=== PATIENT | female | born 1980 | race Caucasian/White ===

== ENCOUNTER 2018-04-04 01:15 | Emergency (ER) | payer OTHER ==
--- NOTE | 2018-04-04 01:55 | ER ---
Nurse's Notes [facility] Name: Coco Moore Age: 38 yrs Sex: Female : 1980 Arrival Date: 04/04/2018 Time: 01:19 Bed 7 Private MD: Diagnosis: Acute pharyngitis;Allergy status to unspecified drugs, medicaments and biological substances status Presentation: 04/04 01:27 Presenting complaint: Patient states: Took first dose of Gabapentin 300 mg capsule at lp1 0000; States waking up and gasping for air, "I feel like I have to think to remember to take a breath"; Patient states "I don't ever take medication". Transition of care: patient was not received from another setting of care. Onset: The symptoms/episode began/occurred suddenly. Anaphylaxis evaluation, an aura of "impending doom". Onset of symptoms was April 04, 2018 at 01:00. Risk Assessment: Do you want to hurt yourself or someone else? Patient reports no desire to harm self or others. Initial Sepsis Screen: Does the patient meet any 2 criteria? No. Patient's initial sepsis screen is negative. Does the patient have a suspected source of infection? No. Patient's initial sepsis screen is negative. Care prior to arrival: None. 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 - Social history:: Smoking status: Patient/guardian denies using tobacco. - Ebola Screening: : No symptoms or risks identified at this time. - Family history:: not pertinent. Screenin:54 Abuse screen: Denies threats or abuse. Denies injuries from another. Nutritional lp1 screening: No deficits noted. Tuberculosis screening: No symptoms or risk factors identified. Fall Risk None identified. Assessment: 01:30 General: Appears in no apparent distress. Behavior is anxious. Pain: Denies pain. lp1 Neuro: Level of Consciousness is awake, alert, obeys commands, Oriented to person, place, time, situation. Cardiovascular: Patient's skin is warm and dry. Respiratory: Airway is patent Trachea midline Respiratory effort is even, Respiratory pattern is regular, Breath sounds are clear bilaterally. GI: No signs and/or symptoms were reported involving the gastrointestinal system. : No signs and/or symptoms were reported regarding the genitourinary system. EENT: Throat is clear. Derm: Skin is pink, warm \\T\\ dry. Musculoskeletal: No deficits noted. 02:27 Reassessment: Patient appears in no apparent distress at this time. Patient and/or ed1 family updated on plan of care and expected duration. Pain level reassessed. Patient is alert, oriented x 3, equal unlabored respirations, skin warm/dry/pink. Patient denies pain at this time. Patient states feeling better. Patient states symptoms have improved. Respiratory: Airway is patent Respiratory effort is even, unlabored, Respiratory pattern is regular, symmetrical, Breath sounds are clear bilaterally. Vital Signs: 01:29 BP 127 / 98; Pulse 78; Resp 16; Temp 97.6(O); Pulse Ox 100% on R/A; Weight 74.84 kg; lp1 Height 5 ft. 9 in. (175.26 cm); Pain 0/10; 02:27 BP 117 / 71; Pulse 72; Resp 16; Pulse Ox 100% on R/A; Pain 0/10; ed1 01:29 Body Mass Index 24.37 (74.84 kg, 175.26 cm) lp1 ED Course: 01:19 Patient arrived in ED. es 01:24 Salvador Brian MD is Attending Physician. aiden 01:26 Rosalva Bertrand, RUBINA is Primary Nurse. lp1 01:29 Triage completed. lp1 01:30 Arm band placed on left wrist. lp1 01:30 Patient has correct armband on for positive identification. Placed in gown. Pulse ox lp1 on. NIBP on. 02:27 No provider procedures requiring assistance completed. Patient did not have IV access ed1 during this emergency room visit. Administered Medications: :59 Drug: predniSONE 60 mg Route: PO; ed1 02:27 Follow up: Response: No adverse reaction ed1 01:59 Drug: Benadryl 50 mg Route: PO; ed1 02:26 Follow up: Response: No adverse reaction; Marked relief of symptoms ed1 01:59 Drug: Zithromax 500 mg Route: PO; ed1 02:26 Follow up: Response: No adverse reaction ed1 Outcome: 01:53 Discharge ordered by MD. wolfe 02:27 Discharged to home ambulatory, with significant other. ed1 02:27 Condition: good 02:27 Discharge instructions given to patient, Instructed on discharge instructions, follow up and referral plans. medication usage, Demonstrated understanding of instructions, follow-up care, medications, Prescriptions given X 4. 02:29 Patient left the ED. ed1 Signatures: Salvador Brian MD MD cha Salyer, Edna es Riggs, Erika, COMPUTING SYSTEMS MECHANIC COMPUTING SYSTEMS MECHANIC ed1 Rosalva Bertrand, RN RN lp1
--- NOTE | 2018-04-04 01:55 | EDPHYS ---
Physician Documentation [facility] Name: Coco Moore Age: 38 yrs Sex: Female : 1980 Arrival Date: 04/04/2018 Time: 01:19 Bed 7 Private MD: ED Physician Salvador Brian HPI: 04/04 01:46 This 38 yrs old Female presents to ER via Ambulatory with complaints of aiden Allergy Symptoms. 01:46 The patient presents with nasal drainage, that is watery. Onset: The symptoms/episode aiden began/occurred just prior to arrival. Modifying factors: The symptoms are alleviated by nothing. the symptoms are aggravated by nothing. 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 - Social history:: Smoking status: Patient/guardian denies using tobacco. - Ebola Screening: : No symptoms or risks identified at this time. - Family history:: not pertinent. ROS: 01:47 Constitutional: Negative for fever, chills, and weight loss, Eyes: Negative for injury, aiden pain, redness, and discharge, Neck: Negative for injury, pain, and swelling, Cardiovascular: Negative for chest pain, palpitations, and edema, Respiratory: Negative for shortness of breath, cough, wheezing, and pleuritic chest pain, Abdomen/GI: Negative for abdominal pain, nausea, vomiting, diarrhea, and constipation, Back: Negative for injury and pain, : Negative for injury, bleeding, discharge, and swelling, MS/Extremity: Negative for injury and deformity, Skin: Negative for injury, rash, and discoloration, Neuro: Negative for headache, weakness, numbness, tingling, and seizure, Psych: Negative for depression, anxiety, suicide ideation, homicidal ideation, and hallucinations, Allergy/Immunology: Negative for hives, rash, and allergies, Endocrine: Negative for neck swelling, polydipsia, polyuria, polyphagia, and marked weight changes, Hematologic/Lymphatic: Negative for swollen nodes, abnormal bleeding, and unusual bruising. 01:47 ENT: Positive for difficulty swallowing. 01:47 Respiratory: Positive for cough, shortness of breath, at rest. Exam: 01:47 Constitutional: This is a well developed, well nourished patient who is awake, alert, aiden and in no acute distress. Head/Face: Normocephalic, atraumatic. Eyes: Pupils equal round and reactive to light, extra-ocular motions intact. Lids and lashes normal. Conjunctiva and sclera are non-icteric and not injected. Cornea within normal limits. Periorbital areas with no swelling, redness, or edema. Neck: Trachea midline, no thyromegaly or masses palpated, and no cervical lymphadenopathy. Supple, full range of motion without nuchal rigidity, or vertebral point tenderness. No Meningismus. Chest/axilla: Normal chest wall appearance and motion. Nontender with no deformity. No lesions are appreciated. Cardiovascular: Regular rate and rhythm with a normal S1 and S2. No gallops, murmurs, or rubs. Normal PMI, no JVD. No pulse deficits. Respiratory: Lungs have equal breath sounds bilaterally, clear to auscultation and percussion. No rales, rhonchi or wheezes noted. No increased work of breathing, no retractions or nasal flaring. Abdomen/GI: Soft, non-tender, with normal bowel sounds. No distension or tympany. No guarding or rebound. No evidence of tenderness throughout. Back: No spinal tenderness. No costovertebral tenderness. Full range of motion. Skin: Warm, dry with normal turgor. Normal color with no rashes, no lesions, and no evidence of cellulitis. MS/ Extremity: Pulses equal, no cyanosis. Neurovascular intact. Full, normal range of motion. Neuro: Awake and alert, GCS 15, oriented to person, place, time, and situation. Cranial nerves II-XII grossly intact. Motor strength 5/5 in all extremities. Sensory grossly intact. Cerebellar exam normal. Normal gait. Psych: Awake, alert, with orientation to person, place and time. Behavior, mood, and affect are within normal limits. 01:47 ENT: TM's: are normal, no acute changes, Nose: is normal, no acute changes, Mouth: is normal, no acute changes, Lips: normal, moist, Oral mucosa: normal, moist, Gums: normal with healthy appearance, Tongue: is normal, abscess, is not appreciated, drooling, is not appreciated, Posterior pharynx: Tonsils: with erythema, Uvula: normal, midline, non-edematous, no erythema, swelling, is not appreciated, erythema, that is mild, exudate, is not appreciated, peritonsillar mass, is not appreciated, pooling of secretions, is not appreciated. Vital Signs: 01:29 BP 127 / 98; Pulse 78; Resp 16; Temp 97.6(O); Pulse Ox 100% on R/A; Weight 74.84 kg; lp1 Height 5 ft. 9 in. (175.26 cm); Pain 0/10; 02:27 BP 117 / 71; Pulse 72; Resp 16; Pulse Ox 100% on R/A; Pain 0/10; ed1 01:29 Body Mass Index 24.37 (74.84 kg, 175.26 cm) lp1 MDM: 01:24 Patient medically screened. [facility] 01:49 Data reviewed: vital signs, nurses notes. [facility] Administered Medications: 01:59 Drug: predniSONE 60 mg Route: PO; ed1 02:27 Follow up: Response: No adverse reaction ed1 01:59 Drug: Benadryl 50 mg Route: PO; ed1 02:26 Follow up: Response: No adverse reaction; Marked relief of symptoms ed1 01:59 Drug: Zithromax 500 mg Route: PO; ed1 02:26 Follow up: Response: No adverse reaction ed1 Disposition: 04/04/18 01:53 Discharged to Home. Impression: Acute pharyngitis, Allergy status to unspecified drugs, medicaments and biological substances status. - Condition is Stable. - Discharge Instructions: Allergies, Adult, Pharyngitis, Pharyngitis, [id number], Sore Throat, [id number]. - Prescriptions for Benadryl 25 mg Oral Capsule - take 1 capsule by ORAL route every 6 hours As needed; 30 tablet. Pepcid 20 mg Oral Tablet - take 1 tablet by ORAL route every 12 hours for 10 days; 20 tablet. Zithromax Z- Ede 250 mg Oral Tablet - take 1 tablet by ORAL route as directed for 5 days Day 1 - take two (2) tablets one time. Day 2, 3, 4 , 5 take one (1) tablet once daily.; 6 tablet. Medrol (Ede) 4 mg Oral Tablets, Dose Pack - take 1 tablet by ORAL route as directed - follow package instructions; 1 packet. - Medication Reconciliation Form, Thank You Letter, Antibiotic Education, Prescription Opioid Use form. - Follow up: Private Physician; When: 2 - 3 days; Reason: Recheck today's complaints, Continuance of care, Re-evaluation by your physician. - Problem is new. - Symptoms have improved. Signatures: Salvador Brian MD MD cha Riggs, Erika, FIRESTOP/CONTAINMENT WORKER FIRESTOP/CONTAINMENT WORKER ed1 Rosalva Bertrand RN RN lp1 Corrections: (The following items were deleted from the chart) 02:29 01:53 04/04/2018 01:53 Discharged to Home. Impression: Acute pharyngitis; Allergy ed1 status to unspecified drugs, medicaments and biological substances status. Condition is Stable. Forms are Medication Reconciliation Form, Thank You Letter, Antibiotic Education, Prescription Opioid Use. Follow up: Private Physician; When: 2 - 3 days; Reason: Recheck today's complaints, Continuance of care, Re-evaluation by your physician. Problem is new. Symptoms have improved. aiden
[2018-04-04] MEDS ORDERED: AZITHROMYCIN 250 MG TAB ONE (02:01)
[2018-04-04] MEDS ORDERED: DIPHENHYDRAMINE 25 MG TAB/CAP ONE (02:02)
[2018-04-04] MEDS ORDERED: predniSONE 20 MG TAB ONE (02:02)
== END 2018-04-04 02:29 | disposition home or self-care (01) ==
LOC: ER 01:15
DX: J02.9 Acute pharyngitis, unspecified (principal); Z88.9 Allergy status to unspecified drugs, medicaments and biological substances
CPT/HCPCS: 99283; J7512

== ENCOUNTER 2019-01-23 22:38 | Emergency (ER) | payer OTHER ==
[2019-01-24 00:13] LABS: Urine Blood NEGATIVE (NEG); Urine Glucose NEGATIVE (NEG); Urine Protein NEGATIVE (NEG); Urine Specific Gravity 1.025 (1.005-1.030); Urine pH 5.5 (5.0-7.0)
[2019-01-24 00:49] LABS: Absolute Lymphocytes (CBC) 3.8 K/uL (0.7-4.9); Basophils % 0.7 % (0-1.3); Hematocrit 42.3 % (36.0-45.0); Lymphocytes % 48.9 % (15.3-44.8); MPV 10.3 fL (7.6-11.3); RBC Red Blood Cell Count 4.73 M/uL (3.86-4.86)
[2019-01-24] MEDS ORDERED: METOCLOPRAMIDE 10 MG/2mL INJ ONE (00:58)
[2019-01-24] MEDS ORDERED: DIPHENHYDRAMINE 50 MG/ML VIAL ONE (00:59)
[2019-01-24] MEDS ORDERED: NA CHLORIDE 0.9% 2,000 ML ONE (00:59)
[2019-01-24] MEDS ORDERED: KETOROLAC 30 MG/ML INJ ONE (00:59)
--- NOTE | 2019-01-24 01:10 | ER ---
Nurse's Notes [facility] Name: Coco Moore Age: 38 yrs Sex: Female : 1980 Arrival Date: 01/23/2019 Time: 22:40 Bed 18 Private MD: Diagnosis: Headache Presentation: 01/23 22:50 Presenting complaint: Patient states: forehead and sinus headache for 3 days. pt took 2 ak1 migraine Excedrin 1800. Transition of care: patient was not received from another setting of care. Onset of symptoms is unknown. Risk Assessment: Do you want to hurt yourself or someone else? Patient reports no desire to harm self or others. Initial Sepsis Screen: Does the patient meet any 2 criteria? No. Patient's initial sepsis screen is negative. Does the patient have a suspected source of infection? No. Patient's initial sepsis screen is negative. Care prior to arrival: None. 22:50 Method Of Arrival: Ambulatory ak1 22:50 Acuity: HALEY 3 ak1 Triage Assessment: 22:52 Headache History: Denies prior headaches. General: Appears in no apparent distress. ak1 23:40 General: Behavior is calm, cooperative, appropriate for age. Pain: Complains of pain in cc3 right frontal area and left temporal area and left frontal area and forehead and top of head and right side of forehead Pain currently is 10 out of 10 on a pain scale. Pain began 2-3 days ago. Also complains of no other associated symptoms. [facility] BAILIFF: 22:52 LMP N/A - Hysterectomy ak1 Historical: - Allergies: 22:52 No Known Allergies; ak1 - Home Meds: 22:52 None [Active]; ak1 - PMHx: 22:52 Back pain; ak1 - PSHx: 22:52 Hysterectomy; ak1 - Immunization history:: Adult Immunizations unknown. - Social history:: Smoking status: Patient/guardian denies using tobacco. - Ebola Screening: : No symptoms or risks identified at this time. - Family history:: not pertinent. Screenin:40 Abuse screen: Denies threats or abuse. Denies injuries from another. Nutritional cc3 screening: No deficits noted. Tuberculosis screening: No symptoms or risk factors identified. Fall Risk Ambulatory Aid- None/Bed Rest/Nurse Assist (0 pts). Gait- Normal/Bed Rest/Wheelchair (0 pts) Mental Status- Oriented to own ability (0 pts). Assessment: 23:40 General: Appears in no apparent distress. uncomfortable, Behavior is calm, cooperative, cc3 appropriate for age. Pain: Complains of pain in right side of forehead and right frontal area and left temporal area and left frontal area and forehead and top of head Quality of pain is described as aching, Pain began 2-3 days ago. Neuro: Level of Consciousness is awake, alert, obeys commands, Oriented to person, place, time, situation, Appropriate for age. Cardiovascular: Denies chest pain, Heart tones S1 S2 present Capillary refill < 3 seconds in bilateral fingers Patient's skin is warm and dry. Respiratory: Airway is patent Respiratory effort is even, unlabored, Respiratory pattern is regular, symmetrical, Breath sounds are clear bilaterally. GI: Abdomen is round non-distended, Bowel sounds present X 4 quads. Abd is soft and non tender X 4 quads. : No signs and/or symptoms were reported regarding the genitourinary system. EENT: No signs and/or symptoms were reported regarding the EENT system. Derm: Skin is intact, is healthy with good turgor, Skin is pink, warm \T\ dry. normal. Musculoskeletal: Circulation, motion, and sensation intact. Range of motion: intact in all extremities. 01/24 00:20 Reassessment: Patient appears in no apparent distress at this time. Patient and/or cc3 family updated on plan of care and expected duration. Pain level reassessed. Patient is alert, oriented x 3, equal unlabored respirations, skin warm/dry/pink. 01:55 Reassessment: Patient appears in no apparent distress at this time. Patient and/or cc3 family updated on plan of care and expected duration. Pain level reassessed. Patient is alert, oriented x 3, equal unlabored respirations, skin warm/dry/pink. Dr. Brian discharged the patient home with prescriptions given. IV cannula removed and patient left ER vitally stable and ambulatory with her family. No valuables left in the patient's room. Patient denies pain at this time. Patient states feeling better. Patient states symptoms have improved. Vital Signs: 01/23 22:52 BP 139 / 91; Pulse 73; Resp 16; Temp 97.0; Pulse Ox 99% on R/A; Weight 72.57 kg (R); ak1 Height 5 ft. 9 in. (175.26 cm) (R); Pain 6/10; 23:15 BP 149 / 97; Pulse 79; Resp 17 S; Pulse Ox 99% on R/A; cc3 01/24 00:40 BP 137 / 84; Pulse 84; Resp 16 S; Pulse Ox 99% on R/A; cc3 01:00 BP 114 / 72; Pulse 72; Resp 15 S; Pulse Ox 99% on R/A; Pain 0/10; cc3 01/23 22:52 Body Mass Index 23.63 (72.57 kg, 175.26 cm) ak1 ED Course: 01/23 22:40 Patient arrived in ED. ds1 22:51 Triage completed. ak1 22:52 Arm band placed on Patient placed in waiting room, Patient notified of wait time. ak1 23:40 Janae Santos is Primary Nurse. cc3 23:40 Patient has correct armband on for positive identification. Bed in low position. Call cc3 light in reach. Side rails up X2. Pulse ox on. NIBP on. 23:42 Salvador Brian MD is Attending Physician. aiden 01/24 00:38 CT Head Brain wo Cont In Process Unspecified. EDMS 00:40 Inserted saline lock: 22 gauge in right antecubital area, using aseptic technique. cc3 inserted by RUBINA Collazo. 01:10 Vipul Estrella MD is Referral Physician. aiden 01:55 No provider procedures requiring assistance completed. IV discontinued, intact, cc3 bleeding controlled, No redness/swelling at site. Pressure dressing applied. Administered Medications: 00:50 Drug: NS 0.9% 1000 ml Route: IV; Rate: 1 bolus; Site: right antecubital; cc3 01:50 Follow up: Response: No adverse reaction; IV Status: Order to discontinue infusion; IV cc3 Intake: 600ml ; patient discharged home 00:50 Drug: NS 0.9% 1000 ml Route: IV; Rate: 1 bolus; Site: right antecubital; cc3 01:50 Follow up: Response: No adverse reaction; IV Status: Completed infusion; IV Intake: cc3 1000ml 00:55 Drug: TORadol 30 mg Route: IVP; Site: right antecubital; cc3 01:30 Follow up: Response: No adverse reaction; Pain is decreased cc3 01:00 Drug: Reglan 10 mg Route: IVP; Site: right antecubital; cc3 01:30 Follow up: Response: No adverse reaction; Pain is decreased cc3 01:05 Drug: Benadryl 50 mg Route: IVP; Site: right antecubital; cc3 01:30 Follow up: Response: No adverse reaction; Marked relief of symptoms cc3 Intake: 01:50 IV: 1000ml; Total: 1000ml. cc3 01:50 IV: 600ml; Total: 1600ml. cc3 Outcome: 01:02 Patient left the ED. cc3 01:10 Discharge ordered by . aiden 01:55 Discharged to home ambulatory, with family. cc3 01:55 Condition: stable 01:55 Discharge instructions given to patient, family, Instructed on discharge instructions, follow up and referral plans. medication usage, Demonstrated understanding of instructions, follow-up care, medications, Prescriptions given X 2. Addendum: 01/28/2019 11:13 Addendum: Culture Results: Positive urine culture. Patient was not prescribed a a5 antibiotics at discharge. Report given to DARINEL for further evaluation and then to drawing tender for follow up with patient. Phone call Attempt #1 call failed multiple times. Signatures: Dispatcher [employer] Salvador Segovia MD MD cha Sanford, Flakita ds1 Monica Davis, RN RN aa5 Brianda Montiel RN RN ak1 Janae Santos cc3
--- NOTE | 2019-01-24 01:11 | EDPHYS ---
Physician Documentation [facility] Name: Coco Moore Age: 38 yrs Sex: Female : 1980 Arrival Date: 01/23/2019 Time: 22:40 Bed 18 Private MD: CATRACHITO Physician Salvador Brian HPI: 01/24 00:05 This 38 yrs old Female presents to ER via Ambulatory with complaints of aiden Headache. 00:05 The patient complains of pain to the top of head, forehead, left frontal area, left aiden temporal area, right frontal area and right side of forehead. The patient describes the headache as constant. Onset: The symptoms/episode began/occurred 3 day(s) ago. Associated signs and symptoms: The patient has no apparent associated signs or symptoms. Severity of symptoms: At its worst the pain was moderate, in the emergency department the pain is unchanged. Headache History: The patient has had previous headaches and this one is similar to previous episodes. The symptoms are alleviated by nothing. the symptoms are aggravated by nothing. The patient has not experienced similar symptoms in the past. LICENSED CERTIFIED ORTHOTIST: 01/23 22:52 LMP N/A - Hysterectomy ak1 Historical: - Allergies: 22:52 No Known Allergies; ak1 - Home Meds: 22:52 None [Active]; ak1 - PMHx: 22:52 Back pain; ak1 - PSHx: 22:52 Hysterectomy; ak1 - Immunization history:: Adult Immunizations unknown. - Social history:: Smoking status: Patient/guardian denies using tobacco. - Ebola Screening: : No symptoms or risks identified at this time. - Family history:: not pertinent. ROS: 01/24 00:05 Constitutional: Negative for fever, chills, and weight loss, Eyes: Negative for injury, aiden pain, redness, and discharge, ENT: Negative for injury, pain, and discharge, Neck: Negative for injury, pain, and swelling, Cardiovascular: Negative for chest pain, palpitations, and edema, Respiratory: Negative for shortness of breath, cough, wheezing, and pleuritic chest pain, Abdomen/GI: Negative for abdominal pain, nausea, vomiting, diarrhea, and constipation, Back: Negative for injury and pain, : Negative for injury, bleeding, discharge, and swelling, MS/Extremity: Negative for injury and deformity, Skin: Negative for injury, rash, and discoloration, Psych: Negative for depression, anxiety, suicide ideation, homicidal ideation, and hallucinations, Allergy/Immunology: Negative for hives, rash, and allergies, Endocrine: Negative for neck swelling, polydipsia, polyuria, polyphagia, and marked weight changes, Hematologic/Lymphatic: Negative for swollen nodes, abnormal bleeding, and unusual bruising. Neuro: Positive for Exam: 00:09 Constitutional: This is a well developed, well nourished patient who is awake, alert, aiden and in no acute distress. Head/Face: Normocephalic, atraumatic. Eyes: Pupils equal round and reactive to light, extra-ocular motions intact. Lids and lashes normal. Conjunctiva and sclera are non-icteric and not injected. Cornea within normal limits. Periorbital areas with no swelling, redness, or edema. ENT: Nares patent. No nasal discharge, no septal abnormalities noted. Tympanic membranes are normal and external auditory canals are clear. Oropharynx with no redness, swelling, or masses, exudates, or evidence of obstruction, uvula midline. Mucous membranes moist. Neck: Trachea midline, no thyromegaly or masses palpated, and no cervical lymphadenopathy. Supple, full range of motion without nuchal rigidity, or vertebral point tenderness. No Meningismus. Chest/axilla: Normal chest wall appearance and motion. Nontender with no deformity. No lesions are appreciated. Cardiovascular: Regular rate and rhythm with a normal S1 and S2. No gallops, murmurs, or rubs. Normal PMI, no JVD. No pulse deficits. Respiratory: Lungs have equal breath sounds bilaterally, clear to auscultation and percussion. No rales, rhonchi or wheezes noted. No increased work of breathing, no retractions or nasal flaring. Abdomen/GI: Soft, non-tender, with normal bowel sounds. No distension or tympany. No guarding or rebound. No evidence of tenderness throughout. Back: No spinal tenderness. No costovertebral tenderness. Full range of motion. Female : Normal external genitalia. Skin: Warm, dry with normal turgor. Normal color with no rashes, no lesions, and no evidence of cellulitis. MS/ Extremity: Pulses equal, no cyanosis. Neurovascular intact. Full, normal range of motion. Neuro: Awake and alert, GCS 15, oriented to person, place, time, and situation. Cranial nerves II-XII grossly intact. Motor strength 5/5 in all extremities. Sensory grossly intact. Cerebellar exam normal. Normal gait. Psych: Awake, alert, with orientation to person, place and time. Behavior, mood, and affect are within normal limits. Vital Signs: 01/23 22:52 BP 139 / 91; Pulse 73; Resp 16; Temp 97.0; Pulse Ox 99% on R/A; Weight 72.57 kg (R); ak1 Height 5 ft. 9 in. (175.26 cm) (R); Pain 6/10; 23:15 BP 149 / 97; Pulse 79; Resp 17 S; Pulse Ox 99% on R/A; cc3 01/24 00:40 BP 137 / 84; Pulse 84; Resp 16 S; Pulse Ox 99% on R/A; cc3 01:00 BP 114 / 72; Pulse 72; Resp 15 S; Pulse Ox 99% on R/A; Pain 0/10; cc3 01/23 22:52 Body Mass Index 23.63 (72.57 kg, 175.26 cm) ak1 MDM: 01/23 23:42 Patient medically screened. [facility] 01/24 00:07 Data reviewed: vital signs, nurses notes, lab test result(s), EKG, radiologic studies. [facility] 01/23 23:45 Order name: Urine Dipstick--Ancillary (enter results); Complete Time: 00:48 ar 01/24 00:03 Order name: CBC with Diff; Complete Time: 01:09 [facility] 01/24 00:03 Order name: Comprehensive Metabolic Panel; Complete Time: 01:35 [facility] 01/24 00:03 Order name: CT Head Brain wo Cont [facility] 01/24 00:03 Order name: Urine Culture [facility] Administered Medications: 00:50 Drug: NS 0.9% 1000 ml Route: IV; Rate: 1 bolus; Site: right antecubital; cc3 01:50 Follow up: Response: No adverse reaction; IV Status: Order to discontinue infusion; IV cc3 Intake: 600ml ; patient discharged home 00:50 Drug: NS 0.9% 1000 ml Route: IV; Rate: 1 bolus; Site: right antecubital; cc3 01:50 Follow up: Response: No adverse reaction; IV Status: Completed infusion; IV Intake: cc3 1000ml 00:55 Drug: TORadol 30 mg Route: IVP; Site: right antecubital; cc3 01:30 Follow up: Response: No adverse reaction; Pain is decreased cc3 01:00 Drug: Reglan 10 mg Route: IVP; Site: right antecubital; cc3 01:30 Follow up: Response: No adverse reaction; Pain is decreased cc3 01:05 Drug: Benadryl 50 mg Route: IVP; Site: right antecubital; cc3 01:30 Follow up: Response: No adverse reaction; Marked relief of symptoms cc3 Disposition: 01/24/19 01:10 Discharged to Home. Impression: Headache. - Condition is Stable. - Discharge Instructions: General Headache Without Cause, General Headache Without Cause, [id number]. - Prescriptions for Fioricet with Codeine 50- 325-40-30 mg Oral capsule - take 1 capsule by ORAL route every 4 hours as needed not to exceed 6 capsules per 24hrs; 24 capsule. Zofran 4 mg Oral Tablet - take 1 tablet by ORAL route every 12 hours As needed; 20 tablet. - Follow up: Private Physician; When: 2 - 3 days; Reason: Recheck today's complaints, Continuance of care, Re-evaluation by your physician. Follow up: Vipul Estrella; When: 2 - 3 days; Reason: Recheck today's complaints, Continuance of care, Re-evaluation by your physician. - Problem is new. - Symptoms have improved. Signatures: Dispatcher [employer] EDSalvador Lane MD MD cha Krenek, Amber RN RN ak1 Janae Santos cc3 Corrections: (The following items were deleted from the chart) 01:02 01:10 01/24/2019 01:10 Discharged to Home. Impression: Headache. Condition is Stable. cc3 Discharge Instructions: General Headache Without Cause, General Headache Without Cause, [id number]. Prescriptions for Fioricet with Codeine 32-233-35-30 mg Oral capsule - take 1 capsule by ORAL route every 4 hours as needed not to exceed 6 capsules per 24hrs; 24 capsule, Zofran 4 mg Oral Tablet - take 1 tablet by ORAL route every 12 hours As needed; 20 tablet. and Forms are Medication Reconciliation Form, Thank You Letter, Antibiotic Education, Prescription Opioid Use. Follow up: Private Physician; When: 2 - 3 days; Reason: Recheck today's complaints, Continuance of care, Re-evaluation by your physician. Follow up: Vipul Estrella; When: 2 - 3 days; Reason: Recheck today's complaints, Continuance of care, Re-evaluation by your physician. Problem is new. Symptoms have improved. aiden
[2019-01-24 01:27] LABS: Albumin 4.1 g/dL (3.4-5.0); Bilirubin Total 0.4 mg/dL (0.2-1.0); Potassium 3.5 mmol/L (3.5-5.1); Protein, Total 7.6 g/dL (6.4-8.2)
[2019-01-24 01:41] VITALS: BP 139/91; TEMP 97; O2SAT 99
--- NOTE | 2019-01-25 11:07 | RAD REPORT ---
EXAM DESCRIPTION: CT HEAD WITHOUT CONTRAST CLINICAL HISTORY: HEADACHE COMPARISON: None. TECHNIQUE: Axial [address] imaging of the brain. Reformatted coronal and sagittal images ob tained. This examination was performed according to our departmental dose optimization program, which include s automated exposure control, adjustment of the mA and/or kV according to patient size and/or use of iterative reconstruction technique. FINDINGS: Ventricle size and contour is normal. Extra-axial fluid spaces appear normal. Red-white m atter differentiation is maintained. No edema, mass, hemorrhage, or acute infarction. Normal cerebell um and vermis. Fourth ventricle is midline. Prepontine cisterns are not effaced. Normal sella content s. Intraorbital contents appear normal. Clear paranasal sinuses and mastoid air cells. Intact skull base and calvarium. Normal scalp soft tissues. IMPRESSION: 1. Negative CT brain. Electronically signed by: Glenny Ragsdale DO 01/24/2019 12:53 AM CDT Due to temporary technical issues with the PACS/Fluency reporting system, reports are being signed by the in house radiologist as a courtesy to ensure prompt reporting. The interpreting radiologist is f ully responsible for the content of the report.
--- OUTSIDE RECORDS SUMMARY | 2019-01-31 20:07 | XMS REPORT ---
:1980 Author Organization e[employer] Care Team Providers Name Role Phone Sumanth [facility] Provider Role Unavailable Allergies, Adverse Reactions, Alerts Substance Reaction Event Type Gabapentin shortness of breath Drug Allergy Problems Problem Type Condition Code Onset Dates Condition Status Problem Fatigue, unspecified type R53.83 Active Problem Other seasonal allergic rhinitis J30.2 Active Assessment Fatigue, unspecified type R53.83 Active Assessment Need for Tdap vaccination Z23 Active Assessment Well adult on routine health check Z00.00 Active Assessment Adult BMI 26.0-26.9 kg/sq m Z68.26 Active Medications Medication Code System Code Instructions Start Date End Date Status Dosage Centrum [facility] [id number] - Orally Active as directed Results No Known Results Immunizations Vaccine Administration Date TDAP > 7 Years-Adacel Apr 09, 2018 Summary Purpose [employer]ClinicalWorks Submission
--- OUTSIDE RECORDS SUMMARY | 2019-01-31 20:07 | XMS REPORT ---
:1980 Author Organization [employer] Care Team Providers Name Role Phone Sumanth [facility] Provider Role Unavailable Allergies No Known Allergies Problems Problem Type Condition Code Onset Dates Condition Status Problem Fatigue, unspecified type R53.83 Active Problem Other seasonal allergic rhinitis J30.2 Active Assessment Other seasonal allergic rhinitis J30.2 Active Medications No Known Medications Results No Known Results Summary Purpose eClinicalWorks Submission
--- OUTSIDE RECORDS SUMMARY | 2019-01-31 20:07 | XMS REPORT ---
:1980 [facility] [address] [place] [address] [address] [place] [address] Care Team Providers Name Role Phone DR DANIELLE DAVID Unavailable Unavailable Problems This patient has no known problems. Allergies, Adverse Reactions, Alerts This patient has no known allergies or adverse reactions. Medications This patient has no known medications. Encounters Start End Encounter Admission Attending Care Care Encounter Date/Time Date/Time Type Type Clinicians Facility Department ID 2018-04-03 2018-04-03 Outpatient C FRANKIE [facility] [id number] 10:18:00 23:59:00 DANIELLE Results Test Description Test Time Test Comments Text Results Atomic Results Result Comments SPINE LUMBAR 2018-04-03 10:45:24 Lumbar spine series, 5 viewsLocation COMPLETE*GP* Code: L0OREBHUHW HISTORY: [id number]: Back problemCOMPARISON: None.COMMENTS: AP, oblique, and lateral views of the lumbar spine demonstrate noacute fracture or malalignment. There is mild multilevel disc space narrowingwith endplate sclerosis and osteophyte formation. The soft tissues areunremarkable.IMPRESSION: Mild multilevel lumbar spondylosis with otherwise no acuteabnormality. Note made of minimal levoscoliosis.
--- OUTSIDE RECORDS SUMMARY | 2019-01-31 20:08 | XMS REPORT ---
:1980 Author Organization [employer] Care Team Providers Name Role Phone Julio, [facility] Provider Role Unavailable Allergies, Adverse Reactions, Alerts Substance Reaction Event Type Gabapentin shortness of breath Drug Allergy Problems Problem Type Condition Code Onset Dates Condition Status Problem Other seasonal allergic rhinitis J30.2 Active Problem Fatigue, unspecified type R53.83 Active Problem Mixed hyperlipidemia E78.2 Active Assessment Acute non-recurrent maxillary J01.00 Active sinusitis Assessment Upper respiratory tract infection, J06.9 Active unspecified type Medications Medication Code Code Instructions Start End Date Status Dosage System Date Azithromycin [facility] [id number] 250 MG Orally June Active 2 tablets Once a day 2018 on the first day, then 1 tablet daily for [address] [facility] [id number] - Orally Active as directed Results Name Result Date Reference Range Unit Abnormality Flag STREP A RAPID ----Result Neg [id number] FLU TEST A/B ----B Neg [id number] ----A Neg [id number] Summary Purpose eClinicalWorks Submission
--- OUTSIDE RECORDS SUMMARY | 2019-01-31 20:08 | XMS REPORT ---
:1980 Author Organization e[employer] Care Team Providers Name Role Phone Jul[facility], [facility] Provider Role Unavailable Allergies, Adverse Reactions, Alerts Substance Reaction Event Type Gabapentin shortness of breath Drug Allergy Problems Problem Type Condition Code Onset Dates Condition Status Problem Other seasonal allergic rhinitis J30.2 Active Problem Fatigue, unspecified type R53.83 Active Problem Mixed hyperlipidemia E78.2 Active Assessment Adult BMI 26.0-26.9 kg/sq m Z68.26 Active Assessment Fatigue, unspecified type R53.83 Active Assessment Mixed hyperlipidemia E78.2 Active Medications Medication Code System Code Instructions Start Date End Date Status Dosage Centrum [facility] [id number] - Orally Active as directed Results No Known Results Summary Purpose eClinicalWorks Submission
== END 2019-01-24 01:02 | disposition home or self-care (01) ==
LOC: ER 22:38
DX: R51 Headache (principal)
CPT/HCPCS: 96361; 87088; 85025; 87086; 36415; 87077; 87186; 81003; 80053; 70450; 96375; 96374; 99284; J2765; J1200; J7030

== ENCOUNTER 2019-06-20 10:13 | Emergency (ER) | payer OTHER ==
[2019-06-20] MEDS ORDERED: ONDANSETRON 4 MG/2 ML VIAL ONE (10:44)
[2019-06-20] MEDS ORDERED: NA CHLORIDE 0.9% 1,000 ML ONE (10:44)
[2019-06-20] MEDS ORDERED: MORPHINE 4 MG/ML SYR ONE (10:44)
[2019-06-20 11:15] LABS: Basophils % 0.8 % (0-1.3); Lymphocytes % 33.4 % (15.3-44.8); MPV 10.2 fL (7.6-11.3); RBC Red Blood Cell Count 5.04 M/uL (3.86-4.86)
[2019-06-20 11:33] LABS: ALT/SGPT 21 U/L (12-78); AST/SGOT 9 U/L (15-37); Albumin 3.8 g/dL (3.4-5.0); Alkaline Phosphatase 93 U/L (45-117); BUN Blood Urea Nitrogen 15 mg/dL (7-18); Bicarbonate 29 mmol/L (21-32); Bilirubin Direct 0.1 mg/dL (0-0.2); Bilirubin Total 0.7 mg/dL (0.2-1.0); Glucose Level 89 mg/dL (74-106); Lipase 62 U/L (73-393); Potassium 3.9 mmol/L (3.5-5.1); Protein, Total 7.8 g/dL (6.4-8.2); Sodium Level 140 mmol/L (136-145)
--- NOTE | 2019-06-20 11:46 | RAD REPORT ---
EXAM DESCRIPTION: CT - Abdomen Pelvis W Contrast - 06/20/2019 11:25 am CLINICAL HISTORY: Abdominal pain COMPARISON: none. TECHNIQUE: Computed axial tomography of the abdomen pelvis was obtained. 100 cc Isovue-300 was admin istered intravenously. Oral contrast was not requested which limits evaluation of bowel. All CT scans are performed using dose optimization technique as appropriate and may include automated exposure control or mA/KV adjustment according to patient size. FINDINGS: The liver, spleen, pancreas, and adrenals appear unremarkable. Right renal cortical thinni ng perhaps secondary prior inflammation. Small left renal cyst There is no evidence of diverticulitis. Normal appendix. Small umbilical hernia 3.4 centimeter right ovarian cyst. 2.3 centimeter left ovarian cyst. No significant free fluid. Hyste rectomy IMPRESSION: 3.4 centimeter right ovarian cyst without significant free fluid
--- NOTE | 2019-06-20 12:26 | EDPHYS ---
Physician Documentation [facility] Name: Coco Moore Age: 39 yrs Sex: Female : 1980 Arrival Date: 06/20/2019 Time: 10:15 Bed 7 Private MD: Wiley Julio ED Physician Salvador Brian HPI: 06/19 10:35 This 39 yrs old Female presents to ER via Ambulatory with complaints of jmm Abdominal Pain. 10:35 The patient presents with abdominal pain. Onset: The symptoms/episode began/occurred jmm gradually, 1 week(s) ago. The symptoms radiate to back. Associated signs and symptoms: Pertinent positives:. The symptoms are described as achy. This is a 39 year old female with no chronic medical conditions that presents to the ED with complaints of epigastric pain which began approx 1 week ago. Pain radiates in the back. Patient states having to lean forward for relief. . Historical: - Allergies: 10:30 GABAPENTIN; ss - Home Meds: 10:30 None [Active]; ss - PMHx: 10:30 Back pain; ss - PSHx: 10:30 partial hysterectomy; ss - Immunization history:: Adult Immunizations up to date. - Social history:: Smoking status: Patient denies any tobacco usage or history of. ROS: 10:35 Constitutional: Negative for fever, chills, and weight loss, Cardiovascular: Negative jmm for chest pain, palpitations, and edema, Respiratory: Negative for shortness of breath, cough, wheezing, and pleuritic chest pain. 10:35 Abdomen/GI: Positive for abdominal pain. 10:35 Back: Positive for radiated pain. 10:35 All other systems are negative. Exam: 10:35 Constitutional: This is a well developed, well nourished patient who is awake, alert, jmm and in no acute distress. Head/Face: atraumatic. Eyes: EOMI, no conjunctival erythema appreciated ENT: Moist Mucus Membranes Neck: Trachea midline, Supple Chest/axilla: Normal chest wall appearance and motion. Cardiovascular: Regular rate and rhythm. No edema appreciated Respiratory: Normal respirations, no respiratory distress appreciated Abdomen/GI: Non distended, soft Back: Normal ROM Skin: General appearance color normal MS/ Extremity: Moves all extremities, no obvious deformities appreciated, no edema noted to the lower extremities Neuro: Awake and alert, normal gait Psych: Behavior is normal, Mood is normal, Patient is cooperative and pleasant 10:47 Abdomen/GI: Inspection: abdomen appears normal, Palpation: soft, moderate abdominal [facility] tenderness, in the right upper quadrant and left upper quadrant. Vital Signs: 10:24 BP 116 / 73; Pulse 78; Resp 15; Temp 98.3(TE); Pulse Ox 97% on R/A; Weight 70.31 kg; ss Height 5 ft. 9 in. (175.26 cm); Pain 6/10; 11:05 BP 118 / 70; Pulse 61; Resp 17; Pulse Ox 100% ; bp 11:45 BP 125 / 75; Pulse 71; Resp 16; Pulse Ox 99% ; bp 12:40 BP 111 / 81; Pulse 51; Resp 17; Temp 98.5; Pulse Ox 99% ; ss 10:24 Body Mass Index 22.89 (70.31 kg, 175.26 cm) ss MDM: 10:19 Patient medically screened. aiden 12:23 Data reviewed: vital signs, nurses notes. Counseling: I had a detailed discussion with consuelo the patient and/or guardian regarding: the historical points, exam findings, and any diagnostic results supporting the discharge/admit diagnosis, lab results, radiology results, the need for outpatient follow up, to return to the emergency department if symptoms worsen or persist or if there are any questions or concerns that arise at home. ED course: US from 2 days ago reviewed. Imaging studies negative for an acute process. Patient will be put on PPI therapy and is advised to follow up with GI for further evaluation. Patient is otherwise given strict return precautions. Patient understood and agrees with the plan of care. . 06/19 10:31 Order name: Basic Metabolic Panel; Complete Time: 11:37 [facility] 06/19 10:31 Order name: CBC with Diff; Complete Time: 11:28 [facility] 06/19 10:31 Order name: Creatinine for Radiology; Complete Time: 11:37 [facility] 06/19 10:31 Order name: Hepatic Function; Complete Time: 11:37 [facility] 06/19 10:31 Order name: Lipase; Complete Time: 11:37 [facility] 06/19 10:31 Order name: CT Abd/Pelvis - IV Contrast Only; Complete Time: 11:47 [facility] 06/19 10:31 Order name: IV Saline Lock; Complete Time: 11:22 [facility] 06/19 10:31 Order name: Labs collected and sent; Complete Time: 11:21 [facility] Administered Medications: 11:00 Drug: NS 0.9% 1000 ml Route: IV; Rate: 1 bolus; Site: right antecubital; bp 12:43 Follow up: IV Status: Completed infusion; IV Intake: 1000ml ss 11:00 Drug: Zofran (Ondansetron) 4 mg Route: IVP; Site: right antecubital; bp 12:43 Follow up: Response: No adverse reaction ss 11:00 Drug: morphine 4 mg Route: IVP; Site: right antecubital; bp 12:43 Follow up: Response: Pain is decreased ss Disposition: 13:50 Co-signature as Attending Physician, Salvador Brian MD I agree with the assessment and aiden plan of care. Disposition: 06/20/19 12:25 Discharged to Home. Impression: Epigastric pain. - Condition is Stable. - Discharge Instructions: Abdominal Pain, Adult. - Prescriptions for Zofran ODT 4 mg Oral tablet,disintegrating - place 1 tablet by TRANSLINGUAL route every 4-6 hours; 20 tablet. omeprazole 40 mg Oral capsule,delayed release(DR/EC) - take 1 capsule by ORAL route once daily before a meal; 30 capsule. Carafate 1 gram Oral Tablet - take 1 tablet by ORAL route 4 times per day take on an empty stomach, beginning on waking and last dose at bedtime; 100 tablet. - Medication Reconciliation Form, Thank You Letter, Antibiotic Education, Prescription Opioid Use form. - Follow up: Mehul Lam MD; When: 2 - 3 days; Reason: Recheck today's complaints, Continuance of care, Re-evaluation by your physician. Signatures: Dispatcher [employer] Salvador Segovia MD MD cha Mickail, Joel, PA PA Sola Vidal RN RN Vitor Willett RN RN bp Corrections: (The following items were deleted from the chart) 12:47 12:25 06/20/2019 12:25 Discharged to Home. Impression: Epigastric pain. Condition is ss Stable. Forms are Medication Reconciliation Form, Thank You Letter, Antibiotic Education, Prescription Opioid Use. Follow up: Mehul Lam; When: 2 - 3 days; Reason: Recheck today's complaints, Continuance of care, Re-evaluation by your physician. consuelo
--- NOTE | 2019-06-20 12:26 | ER ---
Nurse's Notes [facility] Name: Coco Moore Age: 39 yrs Sex: Female : 1980 Arrival Date: 06/20/2019 Time: 10:15 Bed 7 Private MD: Wiley Julio Diagnosis: Epigastric pain Presentation: 06/19 10:24 Chief complaint: Patient states: epigastric discomfort that radiates towards back that ss began a week ago. Pt is seeing a GI doctor who wants to perform an endoscopy, but cannot have it done any time soon. Pt had a ultrasound of her gallbladder 2 days ago, but does not know the results of that exam yet. Coronavirus screen: Patient denies fever greater than 100.4F, cough, shortness of breath, or difficulty breathing. Proceed with normal triage process. Ebola Screen: Patient denies exposure to infectious person. Patient denies travel to an Ebola-affected area in the 21 days before illness onset. Initial Sepsis Screen: Does the patient meet any 2 criteria? No. Patient's initial sepsis screen is negative. Does the patient have a suspected source of infection? No. Patient's initial sepsis screen is negative. Risk Assessment: Do you want to hurt yourself or someone else? Patient reports no desire to harm self or others. 10:24 Method Of Arrival: Ambulatory ss 10:24 Acuity: HALEY 3 ss 10:30 Onset of symptoms is unknown. ss Triage Assessment: 10:30 General: Appears in no apparent distress. comfortable, Behavior is calm, cooperative, bp appropriate for age. Pain: Complains of pain in epigastric area. EENT: No deficits noted. Neuro: No deficits noted. Cardiovascular: No deficits noted. Respiratory: No deficits noted. GI: Abdomen is non-distended, Reports epigastric pain. : No signs and/or symptoms were reported regarding the genitourinary system. Derm: No deficits noted. Musculoskeletal: No deficits noted. Historical: - Allergies: 10:30 GABAPENTIN; ss - Home Meds: 10:30 None [Active]; ss - PMHx: 10:30 Back pain; ss - PSHx: 10:30 partial hysterectomy; ss - Immunization history:: Adult Immunizations up to date. - Social history:: Smoking status: Patient denies any tobacco usage or history of. Screenin:33 Abuse screen: Denies threats or abuse. Denies injuries from another. Nutritional bp screening: No deficits noted. Tuberculosis screening: No symptoms or risk factors identified. Fall Risk None identified. Assessment: 10:30 General: SEE TRIAGE NOTE. PT HAD RECENT GALLBLADDER U/S, WAITING FOR RESULTS. bp 11:15 Reassessment: PT TO CT. bp 11:15 GI: Bowel sounds present X 4 quads. Abd is soft and non tender X 4 quads. ss 11:45 Reassessment: PT RETURNED FROM CT. ALL CURRENT ORDERS IN PROCESS, PT STATES RELIEF OF bp S/S AFTER MEDICATION. 12:42 Reassessment: PT D/C HOME AMBULATORY, DX WITH EPIGASTRIC PAIN. ss Vital Signs: 10:24 BP 116 / 73; Pulse 78; Resp 15; Temp 98.3(TE); Pulse Ox 97% on R/A; Weight 70.31 kg; ss Height 5 ft. 9 in. (175.26 cm); Pain 6/10; 11:05 BP 118 / 70; Pulse 61; Resp 17; Pulse Ox 100% ; bp 11:45 BP 125 / 75; Pulse 71; Resp 16; Pulse Ox 99% ; bp 12:40 BP 111 / 81; Pulse 51; Resp 17; Temp 98.5; Pulse Ox 99% ; ss 10:24 Body Mass Index 22.89 (70.31 kg, 175.26 cm) ss ED Course: 10:15 Patient arrived in ED. mr 10:15 Wiley Julio DO is Private Physician. mr 10:18 Christopher Chaudhary PA is PHCP. jmm 10:18 Salvador Brian MD is Attending Physician. jmm 10:19 Vtior Dietz, RUBINA is Primary Nurse. bp 10:29 Triage completed. ss 10:30 Arm band placed on right wrist. ss 10:33 Patient has correct armband on for positive identification. Bed in low position. Call bp light in reach. Side rails up X2. 11:00 Inserted saline lock: 20 gauge in right antecubital area, using aseptic technique. bp Blood collected. 11:07 Radiology exam delayed due to IV insertion attempt and/or patient not having bq appropriate IV at this time. 11:24 CT completed. Patient tolerated procedure well. Patient moved back from CT. bq 11:26 CT Abd/Pelvis - IV Contrast Only In Process Unspecified. EDMS 12:24 Mehul Lam MD is Referral Physician. [facility] 12:40 No provider procedures requiring assistance completed. IV discontinued, intact, ss bleeding controlled, No redness/swelling at site. Pressure dressing applied. Administered Medications: 11:00 Drug: NS 0.9% 1000 ml Route: IV; Rate: 1 bolus; Site: right antecubital; bp 12:43 Follow up: IV Status: Completed infusion; IV Intake: 1000ml ss 11:00 Drug: Zofran (Ondansetron) 4 mg Route: IVP; Site: right antecubital; bp 12:43 Follow up: Response: No adverse reaction ss 11:00 Drug: morphine 4 mg Route: IVP; Site: right antecubital; bp 12:43 Follow up: Response: Pain is decreased ss Intake: 12:43 IV: 1000ml; Total: 1000ml. ss Outcome: 12:25 Discharge ordered by MD. [facility] 12:40 Discharged to home ambulatory. ss 12:40 Condition: stable 12:40 Discharge instructions given to patient, Instructed on discharge instructions, follow up and referral plans. medication usage, Demonstrated understanding of instructions, follow-up care, medications, Prescriptions given X 3. 12:47 Patient left the ED. ss Signatures: Dispatcher [employer] EDMS Christopher Chaudhary PA PA [facility] FelicianoJailyn Maria MgonzaloShana Shelby, RUBINA RN Vitor Dietz, RUBINA RN bp Corrections: (The following items were deleted from the chart) 10:33 10:32 General: SEE TRIAGE NOTE. bp bp
[2019-06-20 13:02] VITALS: O2SAT 99
[2019-06-20 13:04] VITALS: BP 111/81; TEMP 98.5
== END 2019-06-20 12:47 | disposition home or self-care (01) ==
LOC: ER 10:13
DX: R10.13 Epigastric pain (principal); Z88.8 Allergy status to other drugs, medicaments and biological substances
CPT/HCPCS: 96361; 85025; 80048; 36415; 80076; 83690; 74177; 96375; 96374; 99284; Q9967; J7030; J2405

== ENCOUNTER 2020-03-01 20:39 | Emergency (ER) | payer OTHER ==
--- OUTSIDE RECORDS SUMMARY | 2020-03-01 21:59 | XMS REPORT | Clinical Summary ---
:1980 Author Organization [facility] Address [address] [place] [address] Care Team Providers Name Role Phone Wiley Julio Primary Care Provider Allergies Active Allergy Reactions Severity Noted Date Comments Gabapentin Swelling, Anxiety Low 04/15/2018 Throat swe lling Medications Medication Sig Dispensed Refills Start Date End Date Status pbojkifcanxl-ygqj-lsil Take 1 tablet 0 Active c acid (CENTRUM by mouth daily. COMPLETE) 18-400 mg-mcg Tab cholecalciferol, Take 10,000 0 A ctive vitamin D3, 3,000 unit Units by mouth Tab daily. fexofenadine (APOLLO) Take 180 mg by 0 Active 180 MG tablet mouth daily. ipratropium (ATROVENT) 2 sprays by 30 mL 0 04/15/201803/25 0.03 % 0.03% nasal Nasal route sprayIndications: every 12 Vasomotor rhinitis (twelve) hours. fluticasone (FLONASE) 2 sprays by 9.9 mL 2 04/15/201804/15 50 mcg/actuation nasal Nasal route sprayIndications: daily. Environmental and seasonal allergies Active Problems Problem Noted Date Nasal turbinate hypertrophy 02/03/2019 Sinusitis chronic, frontal 02/03/2019 Environmental and seasonal allergies 04/15/2018 Sinus headache 04/15/2018 Family History Medical History Relation Name Comments Diabetes Maternal Grandfather Relation Name Status Comments Maternal Grandfather Social History Tobacco Use Types Packs/Day Years Used Date Former Smoker Smokeless Tobacco: Former User Alcohol Use Drinks/Week oz/Week Comments No Alcohol Habits Answer Date Recorded How often do you have a drink containing alcohol? Never 04/15/2018 How many drinks containing alcohol do you have on a typical Not asked day when you are drinking? How often do you have six or more drinks on one occasion? No t asked Sex Assigned at Date Recorded Not on file Last Filed Vital Signs Not on file Plan of Treatment Health Maintenance Due Date Last Done Comments CERVICAL CANCER SCREENING PAP ONLY (Age 21-65) 1999 INFLUENZA VACCINE (#1) 2019 Results Not on fileafter 03/01/2019 0906 1
--- OUTSIDE RECORDS SUMMARY | 2020-03-01 21:59 | XMS REPORT ---
:1980 Author Organization [facility] Address [address] [place] [place] [place] [address] Care Team Providers Name Role Phone Julio Unavailable [phone] PROBLEMS Type Condition ICD9-CM [id number] Onset Condition SNOMED Code Notes Code Code Dates Status Problem Fatigue, R53.83 Active 03458672 unspecified type Problem Other seasonal J30.2 Active 352549006 allergic rhinitis Problem Aphasia of unknown R47.01 Active 15827873 origin Problem Aphasia R47.01 Active 08056646 Problem Mixed E78.2 Active 543184527 hyperlipidemia Problem Emotional F60.3 Active 35264378 instability in adult Problem Generalized F41.1 Active 91925460 anxiety disorder Problem Decreased appetite R63.0 Active 88334045 ALLERGIES Allergen (clinical Drug/Non Drug Reaction Allergy Type Onset Date S tatus drug ingredient) Allergy documented on EMR gabapentin Gabapentin([facility] shortness of Drug Allergy 04/09/2018 Active Code:[address]-64 breath ) ENCOUNTERS from 1980 to 2020-01-06 Encounter Location Date Provider Diagnosis [facility] [place] [address] [place] [address] Dec, 2019 Wiley Julio Aphasia o f unknown Drive [address] [place], [facility] R47 [address]01 ; [place] [address] Generalized an xiety disorder F41.1 ; Unable to think clearl y R41.89 ; Mixed hyperli pidemia E78.2 ; Early s atiety R68.81 ; Fatigu e, unspecified typ e R53.83 ; Emotional ins tability in adult F60.3 ; Adult BMI 26.0-26.9 k g/sq m Z68.26 and Decr eased appetite R63.0 IMMUNIZATIONS Vaccine Route Administration Date Status Adacel (Tdap) IM Intramuscular Apr 09, 2018 Administered Kenalog (Triamcinolone) IM Intramuscular June 22, 2018 Adminis tered SOCIAL HISTORY Tobacco Use: Social History Observation Description Date Details (start date - stop date) Former Smoker Sex Assigned At : Social History Observation Description Sex Assigned At Unknown Alcohol Screen Question Answer Notes Did you have a drink containing alcohol in the past year? No Points 0 Interpretation Negative Tobacco Use/Smoking Question Answer Notes Are you a former smoker REASON FOR REFERRAL No Information VITAL SIGNS Height 69 in Dec, Weight 155 lbs Dec, Temperature 97.7 degrees Fahrenheit Dec, BMI 22.89 kg/m2 Dec, Blood pressure systolic 117 mm Hg Dec, Blood pressure diastolic 78 mm Hg Dec, MEDICATIONS Medication SIG (Take, Route, Frequency, Start Date End Date Status Duration) Centrum - as directed Orally Active Lexapro 10 MG 0.5 tablet once a day x1 wk, May, Not-Taking then 1 tablet once a day Orally Once a day for 30 days Azelastine HCl 0.15 % 2 sprays in each nostril May, Not-Taking Nasally Twice a day for 30 day(s) PROCEDURES No Information RESULTS No Results REASON FOR VISIT not feeling well, fatigue, GI issues MEDICAL (GENERAL) HISTORY Type Description Date Medical History Fatigue, unspecified type Medical History Mixed hyperlipidemia Medical History Other seasonal allergic rhinitis Surgical History Hysterectomy: Non-Cancerous Tumor 2014 Goals Section No Information Health Concerns No Information MEDICAL EQUIPMENT No Information MENTAL STATUS No Information FUNCTIONAL STATUS No Information ASSESSMENTS Encounter Date Diagnosis Notes Dec, Aphasia of unknown origin (ICD-10 - R47. 01) Dec, Fatigue, unspecified type (ICD-10 - R53. 83) Dec, Early satiety (ICD-10 - R68.81) Dec, Adult BMI 26.0-26.9 kg/sq m (ICD-10 - Z6 8.26) Dec, Generalized anxiety disorder (ICD-10 - F 41.1) Dec, Emotional instability in adult (ICD-10 - F60.3) Dec, Mixed hyperlipidemia (ICD-10 - E78.2) Dec, Unable to think clearly (ICD-10 - R41.89 ) Dec, Decreased appetite (ICD-10 - R63.0) PLAN OF TREATMENT Treatment Notes Assessment Notes Clinical Notes Aphasia of unknown origin Discussed differential diagnosis w ith patient. Education given. Referral to neurology for further evaluation and management. Generalized anxiety disorder Actively listented. Support giv en. Discussed treatment options. Medication + Counseling/Therapy. Does not want to be on any medications at this time.-- Anxiety Education: Anxiety is a feeling of anxiousness or nervousness. Being extremely anxious or worried on most days for 6 months or longer is not normal. This is a type of anxiety disorder. This disorder can make it hard to do everyday tasks. Other types of anxiety include: post traumatic stress disorder, panic disorder, and phobias. Symptoms of anxiety may include: feeling worried or on the edge, trouble sleeping, or forgetting things. Feelings of stomach aches or chest tightness is another common symptom. Medicine, exercise, and other treatments like counseling, talk therapy, yoga, and massages maybe necessary to treat this disorder. Mixed hyperlipidemia Diet-Controlled. No Statin indicated at this time. Education given. Hyperlipidemia Education: Hyperlipidemia refers to increased levels of lipids(fats) in the blood, including cholesterol and triglycerides. This can significantly increase your risk of developing coronary artery disease and peripheral artery disease. This can cause chest pain, heart attack, stroke, and fatigue. Treatment is recommended to decrease your risk. Treatment includes: lifestyle modification, low salt/low fat diet, exercise, tobacco cessation, low alcohol intake and sometimes medication. Blood tests (TC,TG, HDL, LDL) are utilized to determine treatment regimens. TC(Total cholesterol) should be below 200. TG(Total Triglycerides) should be below 150. HDL(Good cholesterol) should be above 40. LDL(Bad Cholesterol) should be below 130(if you have one risk factor) or less than 100( if you have more than one risk factor or have DM/CAD/PVD). Compliance with medication and treatment is vital. If you have questions, talk to your doctor. Early satiety . Discussed differential diagnosis with patient. Education given. Managed by GI. Fatigue, unspecified type Increased sunlight + Exercise + Hydration. Education given. Upcoming appointment with endocrinology. Will obtain [employer] panel. Consider rheumatology referral. Emotional instability in adult Discussed differential diagno sis with patient. Education given. Discussed treatment options. Adult BMI 26.0-26.9 kg/sq m Counseling given. Decreased appetite Managed by GI. Education given. Next Appt Details prn Reason: Insurance Providers Payer Name Payer Payer Insured Patient Coverage Coverage End Address Phone Name Relationship to Start Date Jake e Insured Ambetter from [phone] kodi Moore [address] [place] [id number] [facility] [id number]
[2020-03-01 22:52] LABS: Absolute Lymphocytes (CBC) 3.5 K/uL (0.7-4.9); Basophils % 0.7 % (0-1.3); Hematocrit 40.9 % (36.0-45.0); Lymphocytes % 44.6 % (15.3-44.8); MPV 10.2 fL (7.6-11.3); RBC Red Blood Cell Count 4.55 M/uL (3.86-4.86)
[2020-03-01 23:07] LABS: BUN Blood Urea Nitrogen 17 mg/dL (7-18); Bicarbonate 30 mmol/L (21-32); Glucose Level 78 mg/dL (74-106); Magnesium 1.9 mg/dL (1.8-2.4); NT PRO-BNP 96 pg/mL (<125); Potassium 3.5 mmol/L (3.5-5.1); Sodium Level 142 mmol/L (136-145); Troponin (Emerg Dept Use Only) < 0.02 ng/mL (0.0-0.045)
--- NOTE | 2020-03-02 00:33 | ER ---
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 Ebola Screen: Patient negative for fever greater than or equal to 101.5 degrees Fahrenheit, and additional compatible Ebola Virus Disease symptoms Patient denies exposure to infectious person. Patient denies travel to an Ebola-affected area in the 21 days before illness onset. No symptoms or risks identified at this time. Initial Sepsis Screen: Does the patient meet any 2 criteria? No. Patient's initial sepsis screen is negative. Does the patient have a suspected source of infection? No. Patient's initial sepsis screen is negative. Risk Assessment: Do you want to hurt yourself or someone else? Patient reports no desire to harm self or others. Onset of symptoms was February 29, 2020. 21:23 Method Of Arrival: Ambulatory iw 21:23 Acuity: HALEY 3 iw 03/02 00:45 Coronavirus screen: Client denies travel out of the [place] in the last 14 days. 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 - Social history:: Smoking status: Patient denies any tobacco usage or history of. - Family history:: not pertinent. - Hospitalizations: : No recent hospitalization is reported. Screenin:38 Abuse screen: Denies threats or abuse. Denies injuries from another. Nutritional rv screening: No deficits noted. Tuberculosis screening: No symptoms or risk factors identified. Fall Risk None identified. Assessment: 22:37 General: Appears comfortable, Behavior is calm, cooperative. Pain: Complains of pain in rv chest Pain does not radiate. Pain Quality of pain is described as pressure, Pain began suddenly. Neuro: Level of Consciousness is awake, alert, obeys commands, Oriented to person, place, time, situation. Cardiovascular: Capillary refill < 3 seconds Rhythm is sinus bradycardia. Respiratory: Airway is patent Respiratory effort is even, unlabored. Derm: Skin is intact. Vital Signs: 21:23 BP 118 / 84; Pulse 74; Resp 16; Temp 97.4; Pulse Ox 100% on R/A; iw 22:54 BP 116 / 52; Pulse 65; Resp 14; Pulse Ox 97% on R/A; rv 03/02 00:44 BP 111 / 73; Pulse 66; Resp 15; Temp 98; Pulse Ox 99% on R/A; rv ED Course: 03/01 20:40 Patient arrived in ED. cl3 21:26 Triage completed. iw 21:27 Arm band placed on. iw 22:12 Klever Bartholomew RN is Primary Nurse. rv 22:18 Jt Michael MD is Attending Physician. rn 22:30 Inserted saline lock: 20 gauge in right antecubital area, using aseptic technique. rv Blood collected. 22:30 Initial lab(s) drawn, by ct, sent to lab. Patient maintains SpO2 saturation greater rv than 95% on room air. 22:38 Patient has correct armband on for positive identification. Pulse ox on. NIBP on. rv 22:43 XRAY Chest (1 view) In Process Unspecified. EDMS 03/02 00:45 No provider procedures requiring assistance completed. IV discontinued, intact, rv bleeding controlled, No redness/swelling at site. Pressure dressing applied. Administered Medications: No medications were administered Outcome: 00:33 Discharge ordered by . rn 00:45 Discharged to home ambulatory. rv 00:45 Condition: good 00:45 Discharge instructions given to patient, Instructed on discharge instructions, follow up and referral plans. Demonstrated understanding of instructions, follow-up care. 00:45 Patient left the ED. rv Signatures: Dispatcher [employer] EDNC Mary Brown RN RN Jt Michael MD MD rn Vicente, Ronaldo, RN RN Alyssa Covington cl3 Corrections: (The following items were deleted from the chart) 03/01 21:27 21:23 BP 118 / 84; Pulse 74bpm; Resp 16bpm; Pulse Ox 100% RA; Temp 97.4F; iw iw
--- NOTE | 2020-03-02 00:34 | EDPHYS ---
Physician Documentation [facility] Name: Coco Moore Age: 40 yrs Sex: Female : 1980 Arrival Date: 03/01/2020 Time: 20:40 Bed 5 Private MD: ED Physician Jt Michael HPI: 03/01 23:28 This 40 yrs old Female presents to ER via Ambulatory with complaints of Chest rn Tightness, Ankle Swelling. 23:28 The patient or guardian reports chest pain that is located primarily in the anterior rn chest wall. Onset: at an unknown time. The pain does not radiate. Associated signs and symptoms: Pertinent positives: shortness of breath, Pertinent negatives: abdominal pain, syncope. The chest pain is described as aching, dull. Duration: The patient or guardian reports multiple episodes, that are intermittent. Modifying factors: The symptoms are alleviated by nothing. the symptoms are aggravated by nothing. Severity of pain: At its worst the pain was mild in the emergency department the pain is unchanged. The patient has experienced similar episodes in the past. Reports chest pain, malaise, muscle aches, intermittent facial and left ankle swelling. Has been seeing multiple specialists recently, including endocrine without acute findings. Told to f/u with cardiology, has not yet. Has outpt ECHO and holter setup. No trauma. No fever. No hx of PE. Reports symptoms better but didn't know if this was anything new so came in for evaluation. . 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 - Social history:: Smoking status: Patient denies any tobacco usage or history of. - Family history:: not pertinent. - Hospitalizations: : No recent hospitalization is reported. ROS: 23:28 Constitutional: Negative for fever, chills, and weight loss, Eyes: Negative for injury, rn pain, redness, and discharge, Neck: Negative for injury, pain, and swelling, Cardiovascular: Negative for palpitations Respiratory: Negative for cough, wheezing, and pleuritic chest pain, Abdomen/GI: Negative for abdominal pain, nausea, vomiting, diarrhea, and constipation, Back: Negative for injury and pain, MS/Extremity: Negative for injury and deformity, Skin: Negative for injury, rash, and discoloration, Neuro: Negative for headache, weakness, numbness, tingling, and seizure. Exam: 23:27 ECG was reviewed by the Attending Physician. rn 23:28 Constitutional: This is a well developed, well nourished patient who is awake, alert, rn and in no acute distress. Head/Face: Normocephalic, atraumatic. Eyes: Pupils equal round and reactive to light, extra-ocular motions intact. Lids and lashes normal. Conjunctiva and sclera are non-icteric and not injected. Cornea within normal limits. Periorbital areas with no swelling, redness, or edema. Cardiovascular: Regular rate and rhythm. No JVD. No pulse deficits. Respiratory: Speaking full sentences. No increased work of breathing, no retractions or nasal flaring. Abdomen/GI: soft, non-tender Skin: Warm, dry MS/ Extremity: Pulses equal, no cyanosis. Neuro: Awake and alert, GCS 15, oriented to person, place, time, and situation. Cranial nerves II-XII grossly intact. Motor strength 5/5 in all extremities. Sensory grossly intact. Cerebellar exam normal. Vital Signs: 21:23 BP 118 / 84; Pulse 74; Resp 16; Temp 97.4; Pulse Ox 100% on R/A; iw 22:54 BP 116 / 52; Pulse 65; Resp 14; Pulse Ox 97% on R/A; rv 1210 00:44 BP 111 / 73; Pulse 66; Resp 15; Temp 98; Pulse Ox 99% on R/A; rv MDM: 03/01 22:18 Patient medically screened. rn 03/02 00:31 Differential diagnosis: acute pericarditis, anxiety, coronary artery disease chest wall rn pain, costochondritis, esophagitis, gastroesophageal reflux disease (GERD), pleurisy, pneumonia, pneumothorax, pulmonary embolus. Data reviewed: vital signs, nurses notes, lab test result(s), EKG, radiologic studies, plain films, and as a result, I will discharge patient. Counseling: I had a detailed discussion with the patient and/or guardian regarding: the historical points, exam findings, and any diagnostic results supporting the discharge/admit diagnosis, lab results, radiology results, the need for outpatient follow up, to return to the emergency department if symptoms worsen or persist or if there are any questions or concerns that arise at home. Special discussion: I discussed with the patient/guardian in detail that at this point there is no indication for admission to the hospital. It is understood, however, that if the symptoms persist or worsen the patient needs to return immediately for re-evaluation. Based on the history and exam findings, there is no indication for further emergent testing or inpatient evaluation. I discussed with the patient/guardian the need to see the assistant activities director for further evaluation of the symptoms. ED course: No acute findings on blood or imaging, neg d-dimer, will dc home with cardiology f/u as already scheduled. Stable vitals, no oxygen requirement. . 03/01 22:27 Order name: Basic Metabolic Panel rn 03/01 22:27 Order name: CBC with Diff rn 03/01 22:27 Order name: Magnesium rn 03/01 22:27 Order name: NT PRO-BNP rn 03/01 22:27 Order name: Troponin (emerg Dept Use Only) rn 03/01 22:27 Order name: D-Dimer rn 03/01 22:27 Order name: XRAY Chest (1 view) rn 03/01 22:27 Order name: EKG; Complete Time: 22:29 rn 03/01 22:28 Order name: Basic Metabolic Panel; Complete Time: 00:31 ED[facility] 03/01 22:28 Order name: CBC with Automated Diff; Complete Time: 00:31 [facility] 03/01 22:28 Order name: Magnesium; Complete Time: 00:31 [facility] 03/01 22:55 Order name: D-Dimer; Complete Time: 00:31 [facility] 03/01 23:07 Order name: Troponin (Emerg Dept Use Only); Complete Time: 00:31 [facility] 03/01 23:07 Order name: NT PRO-BNP; Complete Time: 00:31 [facility] 03/01 22:27 Order name: Cardiac monitoring; Complete Time: 22:36 rn 03/01 22:27 Order name: EKG - Nurse/Tech; Complete Time: 22:36 rn 03/01 22:27 Order name: IV Saline Lock; Complete Time: 22:36 rn 03/01 22:27 Order name: Labs collected and sent; Complete Time: 22:36 rn 03/01 22:27 Order name: O2 Per Protocol; Complete Time: 22:36 rn 03/01 22: Order name: O2 Sat Monitoring; Complete Time: 22:36 rn EC/09 23:27 Rate is 58 beats/min. Rhythm is regular. QRS [place] is Normal. MI interval is normal. QRS rn interval is normal. QT interval is normal. No Q waves. T waves are Normal. No ST changes noted. Clinical impression: Sinus bradycardia. Interpreted by me. Reviewed by me. Administered Medications: No medications were administered Disposition: 03/02/20 00:33 Discharged to Home. Impression: Chest pain, unspecified. - Condition is Stable. - Discharge Instructions: Nonspecific Chest Pain. - Medication Reconciliation Form, Thank You Letter, Antibiotic Education, Prescription Opioid Use form. - Follow up: Private Physician; When: As needed; Reason: Recheck today's complaints, Re-evaluation by your physician. - Problem is an ongoing problem. - Symptoms have improved. Signatures: Dispatcher [employer] EDMary Mendoza RN RN iw Nieto, Roman, MD MD rn Vicente, Ronaldo, RN RN rv Corrections: (The following items were deleted from the chart) 03/02 00:45 00:33 03/02/2020 00:33 Discharged to Home. Impression: Chest pain, unspecified. rv Condition is Stable. Forms are Medication Reconciliation Form, Thank You Letter, Antibiotic Education, Prescription Opioid Use. Follow up: Private Physician; When: As needed; Reason: Recheck today's complaints, Re-evaluation by your physician. Problem is an ongoing problem. Symptoms have improved. rn
--- NOTE | 2020-03-02 07:24 | RAD REPORT ---
EXAM DESCRIPTION: [place] Single View03/01/2020 10:45 pm CLINICAL HISTORY: Chest pain COMPARISON: 2014 FINDINGS: The lungs appear clear of acute infiltrate. The heart is normal size IMPRESSION: No acute abnormalities displayed
--- NOTE | 2020-03-02 10:58 | EKG ---
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
[2020-03-07 11:57] VITALS: BP 111/73; TEMP 98; O2SAT 99
== END 2020-03-02 00:45 | disposition home or self-care (01) ==
LOC: ER 20:39
DX: R07.89 Other chest pain (principal); Z88.8 Allergy status to other drugs, medicaments and biological substances
CPT/HCPCS: 36415; 71045; 80048; 83735; 83880; 84484; 85025; 85379; 93005; 99285